=== PATIENT | female | born 1990 | race Caucasian/White ===

== ENCOUNTER 2018-05-02 23:17 | Inpatient (IN) | payer OTHER ==
[2018-05-03] MEDS: LACTATED RINGER'S 1,000 ML IV ×2 (00:05→01:40)
[2018-05-03 00:23] LABS: ADD MAN DIFF? NO
[2018-05-03 00:24] LABS: BASOPHIL # 0.1 10^3/ul (0.0-0.1); BASOPHILS % 0.4 % (0.0-2.0); EOSINOPHILS # 0.2 10^3/ul (0.0-0.5); EOSINOPHILS % 1.5 % (0.0-7.0); HEMATOCRIT 30.9 % (37.0-47.0); HEMOGLOBIN 10.2 g/dl (12.0-16.0); LYMPHOCYTES # 1.4 10^3/ul (0.8-2.9); LYMPHOCYTES % 11.3 % (15.0-51.0); MEAN CORPUSCULAR HEMOGLOBIN 27.6 pg (29.0-33.0); MEAN CORPUSCULAR VOLUME 83.5 fl (82.0-101.0); MEAN PLATELET VOLUME 12.7 fl (7.4-10.4); MONOCYTES % 8.2 % (0.0-11.0); NEUTROPHIL # 9.6 10^3/ul (1.6-7.5); NEUTROPHILS % 78.1 % (39.0-77.0); PLATELET COUNT 215 10^3/UL (140-415)
[2018-05-03 00:24] LABS: WHITE BLOOD COUNT 12.3 10^3/ul (4.8-10.8)
[2018-05-03] MEDS ORDERED: OXYTOCIN 30 UNITS/LR 500 ML IV ×2 (00:30→05:00)
[2018-05-03] MEDS ORDERED: CARBOPROST 250 MCG INJ IM ×2 (00:30→05:00)
[2018-05-03] MEDS ORDERED: BUTORPHANOL 2 MG INJ IV (00:30)
[2018-05-03] MEDS ORDERED: MISOPROSTOL 200 MCG TAB PR ×2 (00:30→05:00)
[2018-05-03] MEDS ORDERED: METHYLERGONOVINE 0.2 MG INJ IM ×2 (00:30→05:00)
[2018-05-03 00:47] LABS: INR 0.88; PT RATIO 0.9
[2018-05-03 00:48] LABS: PARTIAL THROMBOPLASTIN TIME 27.5 Sec (23.0-35.0)
[2018-05-03] MEDS ORDERED: FENTAnyl 2MCG/ML-ROPIV 0.2% 100 ML (01:31)
[2018-05-03] MEDS ORDERED: NALOXONE (0.4 MG/ML) INJ IV (02:00)
[2018-05-03] MEDS: OXYTOCIN 30 UNITS/LR 500 ML IV ×3 (04:56→05:13)
[2018-05-03] MEDS ORDERED: DIBUCAINE 1% 30 GM OINT TOP (05:00)
[2018-05-03] MEDS ORDERED: MAGNESIUM HYDROXIDE 30ML CUP PO (05:00)
[2018-05-03] MEDS ORDERED: ONDANSETRON 4 MG INJ IV (05:00)
[2018-05-03] MEDS ORDERED: ACETAMINOPHEN 325 MG TAB PO ×2 (05:00)
[2018-05-03] MEDS: BENZOCAINE 20% 56 ML SPRAY TOP (06:41)
[2018-05-03] MEDS: WITCH HAZEL/GLYCERIN PAD PR (06:41)
[2018-05-03] MEDS: LANOLIN 7 GM TUBE TOP (06:41)
[2018-05-03] MEDS: LACTATED RINGER'S 1,000 ML IV* (07:57)
[2018-05-03] MEDS: IBUPROFEN 600 MG TAB PO (14:10)
[2018-05-03 15:21] LABS: RAPID PLASMA REAGIN NONREACTIVE (NR)
[2018-05-03] MEDS: INFLUENZA VIRUS VACCINE 0.5 ML (DISPENSING) IM* (18:03)
[2018-05-04 06:35] LABS: ADD MAN DIFF? NO
[2018-05-04 06:40] LABS: BASOPHIL # 0.1 10^3/ul (0.0-0.1); BASOPHILS % 0.6 % (0.0-2.0); EOSINOPHILS # 0.3 10^3/ul (0.0-0.5); EOSINOPHILS % 2.6 % (0.0-7.0); HEMATOCRIT 30.9 % (37.0-47.0); HEMOGLOBIN 10.1 g/dl (12.0-16.0); LYMPHOCYTES # 1.6 10^3/ul (0.8-2.9); LYMPHOCYTES % 15.2 % (15.0-51.0); MEAN CORPUSCULAR HEMOGLOBIN 27.7 pg (29.0-33.0); MEAN CORPUSCULAR HGB CONC 32.7 g/dl (32.0-37.0); MEAN CORPUSCULAR VOLUME 84.7 fl (82.0-101.0); MEAN PLATELET VOLUME 12.9 fl (7.4-10.4); MONOCYTES % 8.9 % (0.0-11.0); NEUTROPHIL # 7.7 10^3/ul (1.6-7.5); NEUTROPHILS % 72.1 % (39.0-77.0); PLATELET COUNT 200 10^3/UL (140-415); RED BLOOD COUNT 3.65 10^6/ul (4.20-5.40)
[2018-05-04 06:40] LABS: WHITE BLOOD COUNT 10.6 10^3/ul (4.8-10.8)
[2018-05-04] MEDS: IBUPROFEN 600 MG TAB PO ×2 (08:51→17:52)
[2018-05-04] MEDS: FENTAnyl 2MCG/ML-ROPIV 0.2% 100 ML BAG EPI (10:17)
[2018-05-04] MEDS: LIDOCAINE 1% (MPF) 30 ML INJ INJ (10:18)
[2018-05-04] MEDS ORDERED: BISACODYL 10 MG SUPP PR (14:30)
[2018-05-04] MEDS: MAGNESIUM HYDROXIDE 30ML CUP PO (15:39)
[2018-05-04] MEDS: SENNA/DOCUSATE NA (8.6MG/50MG) TAB PO ×2 (15:40→22:15)
[2018-05-05] MEDS: IBUPROFEN 600 MG TAB PO (05:50)
[2018-05-05] MEDS: MAGNESIUM HYDROXIDE 30ML CUP PO (10:20)
[2018-05-05] MEDS: BISACODYL 10 MG SUPP PR (10:20)
[2018-05-05] MEDS: DIPHTH/TET/ACEL PERTUSS (ADULT) 0.5 ML VIAL IM* (11:00)
== END 2018-05-05 12:30 | disposition home or self-care (01) | DRG 807 ==
LOC: OBT 23:17 → L-D 23:20 → OBT 23:47 → L-D 23:47 → PP1 05-03 06:28
PROVIDERS: Obstetrics & Gynecology
PROC: 10E0XZZ Delivery of Products of Conception, External Approach (ICD-10-PCS; principal; 2018-05-03)
DX: O69.81X0 Labor and delivery complicated by cord around neck, without compression, not applicable or unspecified (principal); Z37.0 Single live birth; Z3A.39 39 weeks gestation of pregnancy
CPT/HCPCS: 36415; 62319; 85025; 85610; 85730; 86592; 86850; 86900; 86901; 90686; 90715; 99464